=== PATIENT | female | born 1960 | race Caucasian/White ===

== ENCOUNTER 2019-09-13 11:04 | Emergency (ER) | payer BC, OTHER ==
[~2019-09-13] VITALS: Ht 167.6 cm; Wt 66.2 kg
[~2019-09-13 11:04] MED LIST: NOHOMEMEDICATIONS
[2019-09-13 11:16] VITALS: BP 131/65
[2019-09-13 12:21] LABS: BASOPHILS 0.4 % (0.0-2.0); EOSINOPHILS 0.4 % (0.0-3.0); HEMATOCRIT 41.8 % (37.0-47.0); LYMPHOCYTES 13.6 % (24.0-44.0); MCH 32.8 pg (26.0-34.0); MCHC 33.6 g/dL (28.0-37.0); MCV 97.7 fL (80.0-100.0); MONOCYTES 9.7 % (1.0-8.0); PLATELET COUNT 183 thou/uL (150-400); POLYS 75.9 % (36.0-66.0); RBC 4.28 mil/uL (4.20-5.00); RDW 13.2 % (10.5-14.5); WBC 9.2 thou/uL (4.0-11.0)
[2019-09-13 12:34] LABS: CALCIUM 10.1 mg/dL (8.5-10.1); CREATININE 0.6 mg/dL (0.6-1.0); POTASSIUM 3.8 mmol/L (3.5-5.1)
[2019-09-13] MEDS ORDERED: AUGMENTIN 875-1 EACH PO (12:43)
== END 2019-09-13 13:32 | disposition home or self-care (01) ==
LOC: ER 11:04
PROVIDERS: Nurse Practitioner Family
DX: S61.452A Open bite of left hand, initial encounter (principal); F17.210 Nicotine dependence, cigarettes, uncomplicated; W55.01XA Bitten by cat, initial encounter; Y93.89 Activity, other specified; Y92.89 Other specified places as the place of occurrence of the external cause; Y99.8 Other external cause status

== ENCOUNTER 2019-09-16 09:39 | Emergency (ER) | payer BC, OTHER ==
[~2019-09-16] VITALS: Ht 162.6 cm; Wt 49.9 kg
[~2019-09-16 09:39] MED LIST changes: +AUGMENTIN 875-1 EACH PO
[2019-09-16 09:42] VITALS: BP 124/80
== END 2019-09-16 10:37 | disposition home or self-care (01) ==
LOC: ER 09:39
DX: Z48.00 Encounter for change or removal of nonsurgical wound dressing (principal); F17.210 Nicotine dependence, cigarettes, uncomplicated

== ENCOUNTER 2019-09-20 06:54 | Emergency (ER) | payer BC, OTHER ==
[~2019-09-20] VITALS: Ht 162.6 cm; Wt 49.9 kg
[2019-09-20 07:28] VITALS: BP 141/69
== END 2019-09-20 07:30 | disposition home or self-care (01) ==
LOC: ER 06:54
DX: Z23 Encounter for immunization (principal); F17.210 Nicotine dependence, cigarettes, uncomplicated; Z20.3 Contact with and (suspected) exposure to rabies

== ENCOUNTER 2019-09-27 06:56 | Emergency (ER) | payer BC, OTHER ==
[~2019-09-27] VITALS: Ht 162.6 cm; Wt 54.4 kg
[2019-09-27 07:56] VITALS: BP 133/71
== END 2019-09-27 07:56 | disposition home or self-care (01) ==
LOC: ER 06:56
DX: Z29.14 Encounter for prophylactic rabies immune globulin (principal); F17.210 Nicotine dependence, cigarettes, uncomplicated